=== PATIENT | male | born 1970 | race Caucasian/White ===

== ENCOUNTER 2019-05-08 16:43 | Inpatient (IN) | payer OTHER ==
[~2019-05-08] VITALS: Ht 170.1 cm; Wt 83.5 kg
[2019-05-08 16:45] VITALS: BP 147/102
[2019-05-08 17:00] LABS: BASO % 0.7 % (0.0-1.0); EOS # 0.2 10*3/uL (0.0-0.4); EOS % 3.3 % (1.0-4.0); HEMATOCRIT 45.8 % (42.0-52.0); HEMOGLOBIN 16.4 g/dl (14.0-18.0); LYMPH # 1.7 10*3/uL (1.3-4.4); LYMPH % 28.6 % (27.0-41.0); MEAN CELL VOLUME 91.8 fl (80.0-94.0); MEAN CORPUSCULAR HGB 32.9 pg (27.0-31.0); MEAN CORPUSCULAR HGB CONC 35.8 g/dl (33.0-37.0); MEAN PLATELET VOLUME 10.1 fl (9.6-12.3); MONO # 0.5 10*3/uL (0.1-1.0); NEUT # 3.4 10*3/uL (2.3-7.9); NEUT % 58.1 % (47.0-73.0); PLATELET COUNT AUTOMATED 186 10*3/uL (130-400); RED BLOOD COUNT 4.99 10*6/uL (4.50-5.90); RED CELL DISTRI WIDTH 11.9 % (0-14.5); WHITE BLOOD COUNT 5.8 10*3/uL (4.8-10.8)
[2019-05-08 17:13] LABS: ACT PARTIAL THROMBO TIME 24.9 SECONDS (20.0-32.1)
[2019-05-08 17:19] LABS: ALKALINE PHOSPHATASE 81 U/L (45-117); BUN 14 mg/dl (7-24); CHLORIDE 107 mmol/L (98-107); CREATININE 1.22 mg/dL (0.70-1.30); SGOT/AST 27 IU/L (3-35); SGPT/ALT 36 U/L (12-78); SODIUM 139 mmol/L (136-145); TOTAL PROTEIN 7.5 gm/dL (6.4-8.2)
[2019-05-08 17:22] LABS: TROPONIN I 0.214 ng/ml (<0.045)
--- NOTE | 2019-05-08 18:20 | NUR ---
PT REFUSES TO BE ADMITTED. PROVIDER MADE AWARE.
[2019-05-08 18:45] VITALS: BP 149/93
--- NOTE | 2019-05-08 18:45 | NUR ---
PT STILL REFUSES TO STAY, HEPARIN DOSING ON HOLD UNTIL HE SPEAKS WITH SOMEONE ON THE PHONE TO FINALLY DECIDE.
--- NOTE | 2019-05-08 18:56 | NUR ---
PROVIDER IN SPEAKING WITH PT WHO HAS YET TO DECIDE IF HE WILL ACCEPT HE[facility]IN AND ADMISSION THIS EVENING.
--- NOTE | 2019-05-08 19:02 | NUR ---
PT NOW AGREES TO ADMISSION AND HEPARIN INFUSION.
--- NOTE | 2019-05-08 19:20 | NUR ---
ONE OF PT'S MAIN REASONS FOR NOT WANTING TO STAY WAS APPARENTLY NEEDING TO SIGN SOME BUSINESS PAPERS HIS HAS. PROVIDER HAS SPOKEN WITH NUCLEAR DESIGN ENGINEER AND SECURITY AND A WAIVER OF VISITING HOURS WILL BE PROVIDED FOR THIS PT AND HIS FELI IF SHE ARRIVES AFTER 9PM VISITING HOURS.
[2019-05-08 20:00] VITALS: BP 125/84
--- NOTE | 2019-05-08 20:15 | NUR ---
A 48, admitted to , under the services of JUAN PABLO Helm DO with a diagnosis of ATYPICAL CHEST PAIN. Chief complaint is C/O BURNING IN CHEST. Patient arrived via stretcher from ER. Monitor applied. Initial assessment completed. Vital signs taken and recorded. JUAN PABLO HELM DO notified of admission to the unit. Orders received. See assessment for past medical history, medications and allergies. Patient and/or family oriented to unit. [facility] visitation policy reviewed. Clothing/patient valuable form completed. QUYNH TURNER
--- NOTE | 2019-05-08 20:30 | NUR ---
MEDICATIONS REVIEWED WITH MEDICATION BOTTLES BROUGHT IN BY PATIENT.
--- NOTE | 2019-05-08 20:50 | NUR ---
SPOKE WITH BARAK AT [facility] REGARDING CONSULT WITH REQUEST FOR CALL BACK
--- NOTE | 2019-05-08 20:52 | NUR ---
DR. SHEA RETURNED CALL. NOTIFIED OF HEPARIN GTT AND ELEVATED TROPONINS OF 0.214 AND 0.224. WILL SEE PATIENT IN AM
[2019-05-08] MEDS ORDERED: RANITIDINE HCL150 M1 PO (21:01)
[2019-05-08] MEDS ORDERED: 'zyrtec10 MG PO (21:02)
[2019-05-08] MEDS ORDERED: OMEPRAZOLE40 MG PO (21:02)
--- NOTE | 2019-05-08 23:31 | NUR ---
NOTIFIED OF CRITICAL TROPONIN OF 0.303.
[2019-05-09] VITALS: BP 121/87
[2019-05-09 06:48] LABS: BASO % 0.5 % (0.0-1.0); EOS # 0.2 10*3/uL (0.0-0.4); EOS % 3.8 % (1.0-4.0); HEMATOCRIT 45.9 % (42.0-52.0); HEMOGLOBIN 16.2 g/dl (14.0-18.0); LYMPH # 1.9 10*3/uL (1.3-4.4); LYMPH % 32.2 % (27.0-41.0); MEAN CELL VOLUME 92.2 fl (80.0-94.0); MEAN CORPUSCULAR HGB 32.5 pg (27.0-31.0); MEAN CORPUSCULAR HGB CONC 35.3 g/dl (33.0-37.0); MEAN PLATELET VOLUME 10.5 fl (9.6-12.3); MONO # 0.5 10*3/uL (0.1-1.0); MONO % 7.7 % (3.0-9.0); NEUT # 3.2 10*3/uL (2.3-7.9); NEUT % 55.6 % (47.0-73.0); PLATELET COUNT AUTOMATED 171 10*3/uL (130-400); RED BLOOD COUNT 4.98 10*6/uL (4.50-5.90); RED CELL DISTRI WIDTH 11.9 % (0-14.5); WHITE BLOOD COUNT 5.8 10*3/uL (4.8-10.8)
[2019-05-09 06:53] LABS: ALBUMIN 3.7 gm/dl (3.1-4.5); ALKALINE PHOSPHATASE 73 U/L (45-117); BUN 14 mg/dl (7-24); CHLORIDE 107 mmol/L (98-107); CHOLESTEROL 262 mg/dL (<200); CREATININE 1.02 mg/dL (0.70-1.30); HDL CHOLESTEROL 50 mg/dl (40-60); LDL CHOLESTEROL 166 mg/dL (9-159); PHOSPHOROUS 3.3 mg/dL (2.5-4.9); POTASSIUM 3.7 mmol/L (3.5-5.1); SGOT/AST 14 IU/L (3-35); SGPT/ALT 31 U/L (12-78); SODIUM 141 mmol/L (136-145); TOTAL PROTEIN 6.8 gm/dL (6.4-8.2); TRIGLYCERIDES 228 mg/dl (<150); VLDL CHOLESTEROL 46 mg/dL (6-40)
[2019-05-09 07:29] LABS: VITAMIN D, 25-HYDROXY 30.2 ng/mL (30-100)
--- NOTE | 2019-05-09 07:41 | NUR ---
DR SHEA AWARE OF ELEVATED TROP LEVEL THIS MORNING OF 0.45. STATES TO LET DR LOPEZ KNOW WHEN HE COMES IN.
--- NOTE | 2019-05-09 08:00 | NUR ---
DR PERSON IN TO SEE PATIENT. EDUCATED ON HEART CATHETERIZATION. RISKS AND BENEFITS EXPLAINED. PATIENT TO CALL AND CHILDREN. DR PERSON WANTS TO TRANSFER PATIENT TO [facility] FOR HEART CATH TODAY.
--- NOTE | 2019-05-09 09:00 | NUR ---
Shake Maker in to talk to patient. Patient states lives at home with son. There are few steps in the home. Physician: halima calixto [facility]: [facility] Home health services: none Patient's level of ADLs: INDEPENDENT Patient has working utilities: all working DME: none Follow-up physician's appointment after d/c: will be made by hospitalist nurse director upon discharge Does patient want to access PORTAL?: no Discharge plan discussed with patient, he lives at home, is independent in adls and ambualtion, patient states he will be transferred to another facility for health cath, patient denies any home needs at this time. MIRIAM SANCHEZ
--- NOTE | 2019-05-09 09:39 | NUR ---
PATIENT AGREED TO HEART CATHETERIZATION AT [facility] TODAY. DR NAYA SARAVIA.
--- NOTE | 2019-05-09 09:45 | NUR ---
PATIENT'S HEPARIN GTT INCREASED TO 16U/KG/HR OR 13.3ML/HR VIA PROTOCOL. NEW APTT ORDERED FOR 1545.
[2019-05-09] MEDS ORDERED: ATORVASTATIN CA80 M1 PO (10:20)
[2019-05-09] MEDS ORDERED: ASPIRIN CHEWABL81 M1 PO (10:20)
[2019-05-09] MEDS ORDERED: LOPRESSOR25 MG PO (10:20)
--- NOTE | 2019-05-09 10:42 | NUR ---
Discharge instructions reviewed with patient/family. Patient receptive and verbalizes understanding. Follow-up care arranged. Written instructions given to patient/family. PATIENT TRANSFERRED TO [facility] IN [place]. TAKEN FROM UNIT BY AMBULANCE TEAM FROM [place]. PATIENT PLACED ON MONITOR PRIOR TO LEAVING UNIT BY AMBULANCE TEAM. PATIENT DISPLAYED NO S/S OF DISTRESS. FAMILY GIVEN DIRECTIONS TO [facility]. GEOFF FUCHS L
== END 2019-05-09 10:42 | disposition short-term general hospital (02) | DRG 282 ==
LOC: ED 16:43 → EDHOLD 19:06 → 4E 19:26
PROVIDERS: Emergency Medicine; Student in an Organized Health Care Education/Training Program; ADMIT Internal Medicine
DX: I21.4 Non-ST elevation (NSTEMI) myocardial infarction (principal); R73.9 Hyperglycemia, unspecified; E78.5 Hyperlipidemia, unspecified; E83.41 Hypermagnesemia; K21.9 Gastro-esophageal reflux disease without esophagitis; E66.3 Overweight; J30.2 Other seasonal allergic rhinitis; E78.00 Pure hypercholesterolemia, unspecified; Z82.49 Family history of ischemic heart disease and other diseases of the circulatory system; Z68.28 Body mass index [BMI] 28.0-28.9, adult; Z88.0 Allergy status to penicillin; Z83.3 Family history of diabetes mellitus; Z79.82 Long term (current) use of aspirin

== ENCOUNTER → 2019-08-13 | Outpatient (CLI) | payer OTHER ==
[~2019-08-13] MED LIST: 'zyrtec10 MG PO; ASPIRIN CHEWABL81 M1 PO; ATORVASTATIN CA80 M1 PO; LOPRESSOR25 MG PO; OMEPRAZOLE40 MG PO; RANITIDINE HCL150 M1 PO
[2019-08-13 11:49] LABS: CHOLESTEROL 162 mg/dL (<200); HDL CHOLESTEROL 43 mg/dl (40-60); LDL CHOLESTEROL 74 mg/dL (9-159); TRIGLYCERIDES 225 mg/dl (<150); VLDL CHOLESTEROL 45 mg/dL (6-40)
== END | disposition home or self-care (01) ==
LOC: LAB 10:33
PROVIDERS: Internal Medicine
DX: E78.5 Hyperlipidemia, unspecified (principal)

== ENCOUNTER 2019-10-24 21:42 | Emergency (ER) | payer OTHER ==
[~2019-10-24] VITALS: Ht 177.8 cm; Wt 88.5 kg
[2019-10-24 22:09] LABS: BASO % 0.5 % (0.0-1.0); EOS # 0.3 10*3/uL (0.0-0.4); EOS % 4.1 % (1.0-4.0); HEMATOCRIT 44.6 % (42.0-52.0); HEMOGLOBIN 15.8 g/dl (14.0-18.0); LYMPH % 27.5 % (27.0-41.0); MEAN CELL VOLUME 88.5 fl (80.0-94.0); MEAN CORPUSCULAR HGB 31.3 pg (27.0-31.0); MEAN CORPUSCULAR HGB CONC 35.4 g/dl (33.0-37.0); MEAN PLATELET VOLUME 10.4 fl (9.6-12.3); MONO # 0.9 10*3/uL (0.1-1.0); MONO % 12.4 % (3.0-9.0); NEUT # 4.1 10*3/uL (2.3-7.9); NEUT % 55.2 % (47.0-73.0); PLATELET COUNT AUTOMATED 169 10*3/uL (130-400); RED BLOOD COUNT 5.04 10*6/uL (4.50-5.90); RED CELL DISTRI WIDTH 13.6 % (0-14.5); WHITE BLOOD COUNT 7.3 10*3/uL (4.8-10.8)
[2019-10-24 22:27] LABS: ALBUMIN 3.9 gm/dl (3.1-4.5); ALKALINE PHOSPHATASE 99 U/L (45-117); BUN 18 mg/dl (7-24); CHLORIDE 109 mmol/L (98-107); CREATININE 1.17 mg/dL (0.70-1.30); POTASSIUM 3.9 mmol/L (3.5-5.1); SGOT/AST 27 IU/L (3-35); SGPT/ALT 48 U/L (12-78); SODIUM 142 mmol/L (136-145); TOTAL PROTEIN 7.4 gm/dL (6.4-8.2)
[2019-10-24 22:28] LABS: ACT PARTIAL THROMBO TIME 24.5 SECONDS (20.0-32.1)
[2019-10-24 22:37] LABS: TROPONIN I < 0.015 ng/ml (<0.045)
[2019-10-25] MEDS ORDERED: PROTONIX40 MG PO (02:04)
[2019-10-25 02:07] LABS: THYROXINE (T4) TOTAL 8.1 ug/dl (4.5-12.1)
[2019-10-25 02:12] LABS: THYROID STIM HORMONE (HS) 4.8 uIU/ml (0.358-4.75)
[2019-10-26] MEDS ORDERED: TAMIFLU 75MG CA75 MG PO (22:53)
== END 2019-10-25 01:37 | disposition home or self-care (01) ==
LOC: ED 21:42
PROVIDERS: Emergency Medicine Emergency Medical Services
DX: R07.89 Other chest pain (principal); K21.9 Gastro-esophageal reflux disease without esophagitis; R25.2 Cramp and spasm; I25.2 Old myocardial infarction; I10 Essential (primary) hypertension; I25.10 Atherosclerotic heart disease of native coronary artery without angina pectoris; Z98.61 Coronary angioplasty status; Z88.0 Allergy status to penicillin; Z79.899 Other long term (current) drug therapy; Z79.82 Long term (current) use of aspirin; R11.0 Nausea

== ENCOUNTER 2019-10-26 20:22 | Emergency (ER) | payer OTHER ==
[~2019-10-26 20:22] MED LIST changes: +PROTONIX40 MG PO
[2019-10-26 21:28] LABS: BASO % 0.6 % (0.0-1.0); EOS # 0.1 10*3/uL (0.0-0.4); EOS % 1.8 % (1.0-4.0); HEMATOCRIT 41.5 % (42.0-52.0); HEMOGLOBIN 14.7 g/dl (14.0-18.0); LYMPH # 0.4 10*3/uL (1.3-4.4); LYMPH % 7.3 % (27.0-41.0); MEAN CELL VOLUME 90.2 fl (80.0-94.0); MEAN CORPUSCULAR HGB CONC 35.4 g/dl (33.0-37.0); MEAN PLATELET VOLUME 10.7 fl (9.6-12.3); MONO # 0.5 10*3/uL (0.1-1.0); MONO % 10.6 % (3.0-9.0); NEUT % 79.3 % (47.0-73.0); PLATELET COUNT AUTOMATED 133 10*3/uL (130-400); RED CELL DISTRI WIDTH 13.6 % (0-14.5); WHITE BLOOD COUNT 5.1 10*3/uL (4.8-10.8)
[2019-10-26 21:29] LABS: BILIRUBIN 1+ (NEGATIVE); BLOOD NEGATIVE (NEGATIVE); CLARITY SL CLOUDY (CLEAR); COLOR YELLOW (YELLOW); GLUCOSE NEGATIVE (NEGATIVE); KETONE NEGATIVE (NEGATIVE); LEUKO ESTERASE NEGATIVE (NEGATIVE); NITRITE NEGATIVE (NEGATIVE); SPECIFIC GRAVITY 1.025 (1.005-1.030); UROBILINOGEN 0.2 E.U./dl (0.2-1.0)
[2019-10-26 21:32] LABS: EPITHELIAL CELLS 0-2; RBC 0-2 rbc/hpf (0-2); WBC 0-2 wbc/hpf (0-5)
[2019-10-26 21:42] LABS: ALBUMIN 3.6 gm/dl (3.1-4.5); ALKALINE PHOSPHATASE 93 U/L (45-117); BUN 17 mg/dl (7-24); CHLORIDE 108 mmol/L (98-107); CREATININE 1.26 mg/dL (0.70-1.30); POTASSIUM 3.9 mmol/L (3.5-5.1); SGOT/AST 39 IU/L (3-35); SGPT/ALT 56 U/L (12-78); SODIUM 138 mmol/L (136-145); TOTAL PROTEIN 7.1 gm/dL (6.4-8.2)
[2019-10-26 21:48] LABS: TROPONIN I < 0.015 ng/ml (<0.045)
[2019-10-26] MEDS ORDERED: TAMIFLU 75MG CA75 MG PO (22:53)
== END 2019-10-26 23:54 | disposition home or self-care (01) ==
LOC: ED 20:22
PROVIDERS: Physician Assistant
DX: R05 Cough (principal); R11.10 Vomiting, unspecified; K21.9 Gastro-esophageal reflux disease without esophagitis; Z20.828 Contact with and (suspected) exposure to other viral communicable diseases; Z88.0 Allergy status to penicillin; Z79.899 Other long term (current) drug therapy

== ENCOUNTER → 2020-01-30 | Outpatient (CLI) | payer OTHER ==
[~2020-01-30] MED LIST changes: +TAMIFLU 75MG CA75 MG PO
[2020-01-30 09:52] LABS: ALBUMIN 3.7 gm/dl (3.1-4.5); BUN 17 mg/dl (7-24); CHLORIDE 109 mmol/L (98-107); CHOLESTEROL 151 mg/dL (<200); CREATININE 1.06 mg/dL (0.70-1.30); POTASSIUM 4.1 mmol/L (3.5-5.1); SGOT/AST 21 IU/L (3-35); SGPT/ALT 38 U/L (12-78); SODIUM 140 mmol/L (136-145); TRIGLYCERIDES 194 mg/dl (<150); VLDL CHOLESTEROL 39 mg/dL (6-40)
[2020-01-30 09:54] LABS: ALKALINE PHOSPHATASE 85 U/L (45-117); HDL CHOLESTEROL 43 mg/dl (40-60); LDL CHOLESTEROL 69 mg/dL (9-159); TOTAL PROTEIN 7.1 gm/dL (6.4-8.2)
== END | disposition home or self-care (01) ==
LOC: LAB 09:00
PROVIDERS: Internal Medicine
DX: I25.10 Atherosclerotic heart disease of native coronary artery without angina pectoris (principal)

== ENCOUNTER 2022-08-14 19:03 | Emergency (ER) | payer OTHER ==
[~2022-08-14] VITALS: Ht 170.1 cm; Wt 88.5 kg
[2022-08-14 20:07] LABS: HEMATOCRIT 43.5 % (42.0-52.0); MEAN CELL VOLUME 91.2 fl (80.0-94.0); MEAN CORPUSCULAR HGB 32.5 pg (27.0-31.0); MEAN CORPUSCULAR HGB CONC 35.6 g/dl (33.0-37.0); PLATELET COUNT AUTOMATED 142 10*3/uL (130-400); RED BLOOD COUNT 4.77 10*6/uL (4.50-5.90); RED CELL DISTRI WIDTH 12.3 % (0-14.5); WHITE BLOOD COUNT 4.7 10*3/uL (4.8-10.8)
[2022-08-14 20:09] LABS: MANUAL DIFF REFLEX YES
[2022-08-14 20:19] LABS: ACT PARTIAL THROMBO TIME 26.5 SECONDS (20.0-32.1); INTERNATIONAL NORM RATIO 1.1 (2.0-3.5)
[2022-08-14 20:30] LABS: ALKALINE PHOSPHATASE 73 U/L (46-116); BUN 14 mg/dl (9-23); CHLORIDE 104 mmol/L (98-107); CREATININE 1.09 mg/dL (0.70-1.30); POTASSIUM 3.5 mmol/L (3.4-5.1); SGPT/ALT 69 U/L (10-49); SODIUM 136 mmol/L (136-145); TOTAL PROTEIN 6.7 gm/dL (6.0-8.0)
[2022-08-14 20:41] LABS: PLATELET SUFFICIENCY NORMAL (NORMAL); TOTAL CELLS COUNTED 100 #CELLS
[2022-08-14] MEDS ORDERED: BENZONATATE100 M1 PO (22:38)
== END 2022-08-14 22:30 | disposition home or self-care (01) ==
LOC: ED 19:03
PROVIDERS: Emergency Medicine
DX: U07.1 COVID-19 (principal); E80.6 Other disorders of bilirubin metabolism; Z88.0 Allergy status to penicillin; Z79.899 Other long term (current) drug therapy; Z98.890 Other specified postprocedural states

== ENCOUNTER 2022-11-22 20:27 | Emergency (ER) | payer OTHER ==
[~2022-11-22] VITALS: Ht 172.7 cm; Wt 90.7 kg
[~2022-11-22 20:27] MED LIST changes: +BENZONATATE100 M1 PO
[2022-11-22] MEDS ORDERED: NAPROXEN250 MG PO (22:56)
[2022-11-22] MEDS ORDERED: METHOCARBAMOL750 M1 PO (22:56)
== END 2022-11-22 23:04 | disposition home or self-care (01) ==
LOC: ED 20:27
DX: S29.012A Strain of muscle and tendon of back wall of thorax, initial encounter (principal); M54.2 Cervicalgia; V89.2XXA Person injured in unspecified motor-vehicle accident, traffic, initial encounter; Y93.89 Activity, other specified; Y92.89 Other specified places as the place of occurrence of the external cause; Y99.8 Other external cause status

== ENCOUNTER 2025-08-04 01:58 | Emergency (ER) | payer SELFPAY ==
[~2025-08-04] VITALS: Ht 175.2 cm; Wt 95.3 kg
[~2025-08-04 01:58] MED LIST changes: +METHOCARBAMOL750 M1 PO; +NAPROXEN250 MG PO
[2025-08-04] MEDS ORDERED: IBUPROFEN 800 MG 4 TAB ED PACK PO ONE (02:55)
[2025-08-04 03:22] LABS: BASO # 0.0 10*3/uL (0.0-0.1); BASO % 0.3 % (0.0-1.0); EOS # 0.0 10*3/uL (0.0-0.4); EOS % 0.0 % (1.0-4.0); MEAN CELL VOLUME 90.7 fl (80.0-94.0); MEAN CORPUSCULAR HGB 32.7 pg (27.0-31.0); MEAN PLATELET VOLUME 10.2 fl (9.6-12.3); MONO # 0.4 10*3/uL (0.1-1.0); MONO % 11.5 % (3.0-9.0); NEUT # 2.7 10*3/uL (2.3-7.9); NEUT % 76.1 % (47.0-73.0); NUCLEATED RED BLOOD CELL 0.0 % (0.0-0.0); NUCLEATED RED BLOOD CELL 0.0 10*3/uL (0.0-0.0); PLATELET COUNT AUTOMATED 70 10*3/uL (130-400); RED CELL DISTRI WIDTH 11.9 % (0-14.5)
[2025-08-04 03:42] LABS: BUN 14 mg/dl (9-23); SGPT/ALT 97 U/L (5-49)
== END 2025-08-04 06:20 | disposition home or self-care (01) ==
LOC: ED 01:58
PROVIDERS: Student in an Organized Health Care Education/Training Program
DX: M79.18 Myalgia, other site (principal); R10.31 Right lower quadrant pain; R10.32 Left lower quadrant pain; Z98.890 Other specified postprocedural states; Z88.0 Allergy status to penicillin; Z20.822 Contact with and (suspected) exposure to COVID-19

== ENCOUNTER 2025-08-22 19:42 | Emergency (ER) | payer MEDICAID ==
[~2025-08-22] VITALS: Ht 170.1 cm; Wt 90.7 kg
[2025-08-22] MEDS ORDERED: SODIUM CHLORIDE 0.9% 1,000 ML IV ONE (20:30)
[2025-08-22 20:44] LABS: MEAN CELL VOLUME 91.6 fl (80.0-94.0); MEAN CORPUSCULAR HGB 31.7 pg (27.0-31.0); MEAN PLATELET VOLUME 10.2 fl (9.6-12.3); NUCLEATED RED BLOOD CELL 0.0 % (0.0-0.0); NUCLEATED RED BLOOD CELL 0.0 10*3/uL (0.0-0.0); PLATELET COUNT AUTOMATED 98 10*3/uL (130-400); RED CELL DISTRI WIDTH 13.0 % (0-14.5)
[2025-08-22 20:51] LABS: MANUAL DIFF REFLEX YES
[2025-08-22 21:03] LABS: BUN 13 mg/dl (9-23); SGPT/ALT 53 U/L (5-49)
[2025-08-22 21:41] LABS: BASOPHILS 1 % (0-1); PLATELET SUFFICIENCY LOW (NORMAL)
[2025-08-22] MEDS ORDERED: PROTONIX40 MG PO (22:37)
== END 2025-08-22 22:50 | disposition home or self-care (01) ==
LOC: ED 19:42
DX: K21.9 Gastro-esophageal reflux disease without esophagitis (principal); Z98.890 Other specified postprocedural states; Z86.16 Personal history of COVID-19; Z88.0 Allergy status to penicillin